=== PATIENT | female | born 1980 | race Caucasian/White ===

== ENCOUNTER 2016-06-07 18:03 | Emergency (ER) | payer MEDICAID ==
[~2016-06-07] VITALS: Ht 157.5 cm; Wt 75.0 kg
[~2016-06-07 18:03] MED LIST: GLIP5TAB8 PO; METF1000 PO
[2016-06-07 18:05] VITALS: BP 126/73; PULSE 88; RESP 16; TEMP 98; O2SAT 98
[2016-06-07] MEDS ORDERED: SITA25 PO ×3 (18:15→19:10)
[2016-06-07] MEDS ORDERED: GLIP5TAB8 PO (19:06)
[2016-06-07] MEDS ORDERED: METF1000 PO (19:06)
--- NOTE | 2016-06-07 19:09 | PD ---
HPI Chief Complaint: Medication Refill Request Time Seen by Provider: 19:00 Travel History International Travel<30 days: No Contact w/Intl Traveler<30days: No Traveled to known affect area: No History of Present Illness HPI 35-year-old type II diabetic presents requesting medication refill. She is requesting refills of her Januvia 100 mg daily, glipizide 5 mg twice a day and metformin 1000 mg twice a day. She does not currently have a primary care physician and says she's been coming here for her medication refills over the past few months. She says that she is in the process of planning for patient assistance but that it is a difficult process. She has no acute medical complaints at this time. [facility] Past Medical History Diabetes: Yes Patient Takes Glucophage: Yes Diminished Hearing: No Hypertension: Yes Immunizations Current: Yes Tetanus Vaccination: Unknown Influenza Vaccination: No ?: Not : 5 Para: 4 Miscarriage: 1 Tubal Ligation: Yes Past Surgical History Section: Yes Gynecologic Surgery: Yes (TUBAL LIGATION) Oral Surgery: Yes (wisdom) Social History Alcohol Use: No Tobacco Use: No Substance Use: No Allergies-Medications (Allergen,Severity, Reaction): Coded Allergies: Codeine (Verified Adverse Reaction, Intermediate, n/v, 06/07/16) Reported Meds & Prescriptions Reported Meds & Active Scripts Active Januvia (Sitagliptin Phosphate) 25 Mg Tab 100 Mg PO DAILY 60 Days Metformin (Metformin HCl) 1,000 Mg Tab 1,000 Mg PO BIDPC 60 Days With meals Glipizide 5 Mg Tab 5 Mg PO DAILY 60 Days Take 30 minutes before a meal Review of Systems Except as stated in HPI: all other systems reviewed are Neg Physical Exam Narrative GENERAL: Well-developed well-nourished female in no acute distress SKIN: Warm and dry. CARDIOVASCULAR: Regular rate and rhythm. No murmur appreciated. RESPIRATORY: No accessory muscle use. Clear to auscultation. Breath sounds equal bilaterally. Data Data Last Documented VS Vital Signs Date Time Temp Pulse Resp B/P Pulse Ox O2 Delivery O2 Flow Rate FiO2 06/07/16 18:05 98.0 88 16 126/73 98 Room Air MDM Medical Decision Making Medical Screen Exam Complete: Yes Emergency Medical Condition: Yes Medical Record Reviewed: Yes Differential Diagnosis Medication refill, hyperglycemia Narrative Course The patient was given a refill of her medications but she is encouraged to establish care with a primary care physician for continuing care of this chronic condition. Diagnosis Primary Impression: Medication refill Med/Other Pt SpecificInfo: Prescription(s) given Scripts Sitagliptin (Januvia)25 Mg [id number] Mg PO DAILY 60 Days Ref 0 Prov:Erinn Georges MD 06/07/16 Metformin 1,000 Mg Tab1,000 Mg PO BIDPC 60 Days Ref 0 With meals Prov:Erinn Georges MD 06/07/16 Glipizide 5 Mg Tab5 Mg PO DAILY 60 Days Ref 0 Take 30 minutes before a meal Prov:Erinn Georges MD 06/07/16 Disposition: 01 DISCHARGE HOME Condition: Stable Brad Villagran Jun 07, 2016 19:09
== END 2016-06-07 20:31 | disposition home or self-care (01) ==
LOC: NEPB 18:03
DX: E11.9 Type 2 diabetes mellitus without complications (principal); I10 Essential (primary) hypertension; Z79.84 Long term (current) use of oral hypoglycemic drugs; Z76.0 Encounter for issue of repeat prescription
CPT/HCPCS: 99281

== ENCOUNTER 2016-06-26 12:29 | Emergency (ER) | payer MEDICAID, OTHER ==
[~2016-06-26] VITALS: Ht 157.5 cm; Wt 74.0 kg
[~2016-06-26 12:29] MED LIST changes: +SITA25 PO
[2016-06-26 12:53] VITALS: BP 126/83; PULSE 84; RESP 17; TEMP 98.5; O2SAT 99
[2016-06-26 13:45] VITALS: BP 123/75; PULSE 73; RESP 18; O2SAT 99
[2016-06-26] MEDS ORDERED: METF1000 PO (13:49)
[2016-06-26] MEDS ORDERED: GLIP5TAB8 PO (13:49)
[2016-06-26] MEDS ORDERED: LISI-519 PO (13:49)
--- NOTE | 2016-06-26 13:49 | PD ---
HPI Chief Complaint: Diabetic Time Seen by Provider: 13:21 Travel History International Travel<30 days: No Contact w/Intl Traveler<30days: No Traveled to known affect area: No History of Present Illness HPI The patient is a 35-year-old female who presents emergency department for hyperglycemia medication refill. The patient has a history of non-insulin- dependent diabetes for several years and was taking metformin 1000 g twice a day , glipizide 5 mg daily, and Januvia. However, the patient is currently unable to afford her Januvia, states it's over $400 per month. The patient was living in [place] and had a physician in that [facility], however, moved to local area does not currently have a physician. The patient is currently trying to go through patient assistance to obtain follow-up for her diabetes. The patient states that her head feels fuzzy with slight disorientation. She denies any chest pain, shortness breath, nausea, vomiting, or abdominal pain. The patient states her blood sugar earlier today was greater than 400, however, upon arrival to the emergency department was less than 400. The patient also states she was on low-dose lisinopril, 5 mg daily, to protect her kidneys. However, she ran out of her prescription for lisinopril. PFSH Past Medical History Diabetes: Yes Patient Takes Glucophage: Yes (06-26-16 0800) Diminished Hearing: No Hypertension: Yes Immunizations Current: Yes Tetanus Vaccination: > 5 Years Influenza Vaccination: No ?: Not LMP: 06/22/2016 : 5 Para: 4 Miscarriage: 1 Tubal Ligation: Yes Past Surgical History Section: Yes Gynecologic Surgery: Yes (TUBAL LIGATION) Oral Surgery: Yes (wisdom) Social History Alcohol Use: No Tobacco Use: No Substance Use: No Allergies-Medications (Allergen,Severity, Reaction): Coded Allergies: Codeine (Verified Adverse Reaction, Intermediate, n/v, 06/26/16) Reported Meds & Prescriptions Reported Meds & Active Scripts Active Lisinopril 5 Mg Tab 5 Mg PO DAILY Metformin (Metformin HCl) 1,000 Mg Tab 1,000 Mg PO BIDPC With meals Glipizide 5 Mg Tab 5 Mg PO DAILY Take 30 minutes before a meal Januvia (Sitagliptin Phosphate) 25 Mg Tab 100 Mg PO DAILY 60 Days Metformin (Metformin HCl) 1,000 Mg Tab 1,000 Mg PO BIDPC 60 Days With meals Glipizide 5 Mg Tab 5 Mg PO DAILY 60 Days Take 30 minutes before a meal Review of Systems Except as stated in HPI: all other systems reviewed are Neg HENT: No: Lightheadedness Cardiovascular: No: Chest Pain or Discomfort Respiratory: No: Shortness of Breath Gastrointestinal: No: Nausea, Vomiting, Abdominal Pain Endocrine: Positive: Other (as noted in the history of present illness) Physical Exam Narrative GENERAL: Awake, alert, pleasant 35-year-old female appears her stated age is in no acute respiratory distress. SKIN: Warm and dry. HEAD: Atraumatic. Normocephalic. EYES: Pupils equal and round. No injection or drainage. ENT: No nasal bleeding or discharge. Mucous membranes pink and moist. NECK: Trachea midline. No JVD. CARDIOVASCULAR: Regular rate and rhythm. No murmur appreciated. RESPIRATORY: No accessory muscle use. Clear to auscultation. Breath sounds equal bilaterally. MUSCULOSKELETAL: No obvious deformities. No clubbing. No cyanosis. No edema. NEUROLOGICAL: Awake and alert. No obvious cranial nerve deficits. Motor grossly within normal limits. Normal speech. PSYCHIATRIC: Appropriate mood and affect; insight and judgment normal. Data Data Last Documented VS Vital Signs Date Time Temp Pulse Resp B/P Pulse Ox O2 Delivery O2 Flow Rate FiO2 06/26/16 13:45 73 18 123/75 99 Room Air 06/26/16 12:53 98.5 Orders Ed Urine Pregnancytest Poc (06/26/16 13:34) [facility] Medical Decision Making Medical Screen Exam Complete: Yes Emergency Medical Condition: Yes Medical Record Reviewed: Yes Differential Diagnosis Differential diagnosis includes hyperglycemia, DKA, hyperosmolar non ketosis, dehydration, electrolyte abnormality, noncompliance. Narrative Course I offered to place an IV and perform laboratory evaluation rule out DKA and electrolyte abnormalities. However, the patient did not want an IV or laboratory evaluation. The patient is currently requesting medication refills, including glipizide, metformin, and lisinopril. I reviewed the patient's EMR, she had laboratory evaluation performed on March 31, 2016 which revealed sodium 135, potassium 4.2, chloride 102, CO2 26.5, BUN 9, creatinine 0.76, glucose of 377 at that time. Patient's kidney function has been normal on repeat visits to the emergency department for medication refill. Therefore, bedside will be obtained, if negative, I will write patient's medications. The UA test was negative. She is advised to follow with patient assistance, a primary physician, and/or lpn instructor. Patient agrees and understands. Diagnosis Primary Impression: Hyperglycemia due to type 2 diabetes mellitus Qualified Code: E11.65 - Type 2 diabetes mellitus with hyperglycemia, without long-term current use of insulin Additional Impression: Medication refill Patient Instructions: General Instructions Additional Instructions: Medications as directed. Follow-up with a primary physician and/or lpn instructor. Return if symptoms worsen or progress. Med/Other Pt SpecificInfo: Prescription(s) given Scripts Lisinopril 5 Mg Tab5 Mg PO DAILY #30 TAB Ref 2 Prov:Feliz Perez MD 06/26/16 Metformin 1,000 Mg Tab1,000 Mg PO BIDPC #60 TAB Ref 2 With meals Prov:Feliz Perez MD 06/26/16 Glipizide 5 Mg Tab5 Mg PO DAILY #30 TAB Ref 2 Take 30 minutes before a meal Prov:Feliz Perez MD 06/26/16 Disposition: 01 DISCHARGE HOME Condition: Stable Feliz Perez MD Jun 26, 2016 13:49
== END 2016-06-26 14:00 | disposition home or self-care (01) ==
LOC: PHED 12:29
DX: E11.65 Type 2 diabetes mellitus with hyperglycemia (principal); Z79.84 Long term (current) use of oral hypoglycemic drugs; Z76.0 Encounter for issue of repeat prescription
CPT/HCPCS: 84703; 99284